=== PATIENT | female | born 1975 | race Caucasian/White ===

== ENCOUNTER 2021-01-03 21:59 | Inpatient (IN) | payer MEDICARE, OTHER ==
[~2021-01-03] VITALS: Ht 160 cm; Wt 59.1 kg
[2021-01-04] MEDS ORDERED: FAMOTIDINE20 MG PO (02:40)
[2021-01-04] MEDS ORDERED: GABAPENTIN800 MG PO (02:41)
[2021-01-04] MEDS ORDERED: BUPRENORPHIN-N1 EACH SL (02:43)
[2021-01-04 05:35] LABS: HEMOGLOBIN 13.2 gm/dl (12.3-15.3); RED BLOOD COUNT 4.04 M/UL (4.00-5.10); WHITE BLOOD COUNT 6.3 K/UL (4.5-11.0)
[2021-01-04 06:18] LABS: BUN/CREATININE RATIO 10 (0-10)
[2021-01-05 03:08] LABS: HEMOGLOBIN 11.9 gm/dl (12.3-15.3); RED BLOOD COUNT 3.85 M/UL (4.00-5.10); WHITE BLOOD COUNT 7.7 K/UL (4.5-11.0)
[2021-01-05 03:39] LABS: BUN/CREATININE RATIO 11 (0-10)
[2021-01-05 10:21] LABS: HBSAG SCREEN Negative (Negative); HEP A AB, IGM Negative (Negative); HEP B CORE AB, IGM Negative (Negative); HEP C VIRUS AB <0.1 (0.0-0.9)
[2021-01-06 05:26] LABS: HEMOGLOBIN 11.4 gm/dl (12.3-15.3); RED BLOOD COUNT 3.65 M/UL (4.00-5.10); WHITE BLOOD COUNT 6.7 K/UL (4.5-11.0)
[2021-01-06 08:15] LABS: BUN/CREATININE RATIO 10 (0-10)
[2021-01-07 04:48] LABS: HEMOGLOBIN 12.5 gm/dl (12.3-15.3); RED BLOOD COUNT 3.86 M/UL (4.00-5.10); WHITE BLOOD COUNT 7.5 K/UL (4.5-11.0)
[2021-01-08 06:09] LABS: HEMOGLOBIN 13.5 gm/dl (12.3-15.3); RED BLOOD COUNT 4.2 M/UL (4.00-5.10); WHITE BLOOD COUNT 7.8 K/UL (4.5-11.0)
[2021-01-08 06:28] LABS: BUN/CREATININE RATIO 13 (0-10)
[2021-01-09 03:23] LABS: HEMOGLOBIN 13.3 gm/dl (12.3-15.3); RED BLOOD COUNT 4.18 M/UL (4.00-5.10); WHITE BLOOD COUNT 7.6 K/UL (4.5-11.0)
[2021-01-10 04:13] LABS: HEMOGLOBIN 13.8 gm/dl (12.3-15.3); RED BLOOD COUNT 4.26 M/UL (4.00-5.10)
--- NOTE | 2021-01-10 17:49 | NUR ---
DRESSING CHANGED PER ORDERS AT 1100.
[2021-01-12 03:18] LABS: HEMOGLOBIN 13.5 gm/dl (12.3-15.3); RED BLOOD COUNT 4.14 M/UL (4.00-5.10); WHITE BLOOD COUNT 7.3 K/UL (4.5-11.0)
[2021-01-12] MEDS ORDERED: NICOTINE PATCH1 EAC2 TOP (09:43)
[2021-01-12] MEDS ORDERED: LEVOFLOXACIN500 MG PO (09:43)
== END 2021-01-12 11:45 | disposition home or self-care (01) | DRG 264 ==
LOC: M/S 21:59
PROVIDERS: Internal Medicine; Internal Medicine Infectious Disease; Physician Assistant; Podiatrist Foot & Ankle Surgery; ADMIT Internal Medicine
PROC: 0J9Q0ZZ Drainage of Right Foot Subcutaneous Tissue and Fascia, Open Approach (ICD-10-PCS; 2021-01-04)
PROC: 0JBQ0ZZ Excision of Right Foot Subcutaneous Tissue and Fascia, Open Approach (ICD-10-PCS; principal; 2021-01-04 09:45)
DX: E11.52 Type 2 diabetes mellitus with diabetic peripheral angiopathy with gangrene (principal); L03.115 Cellulitis of right lower limb; M86.8X7 Other osteomyelitis, ankle and foot; L02.415 Cutaneous abscess of right lower limb; F11.20 Opioid dependence, uncomplicated; N17.9 Acute kidney failure, unspecified; Z20.822 Contact with and (suspected) exposure to COVID-19; E11.69 Type 2 diabetes mellitus with other specified complication; I82.401 Acute embolism and thrombosis of unspecified deep veins of right lower extremity; F19.10 Other psychoactive substance abuse, uncomplicated; B95.4 Other streptococcus as the cause of diseases classified elsewhere; F17.210 Nicotine dependence, cigarettes, uncomplicated; E55.9 Vitamin D deficiency, unspecified; F41.9 Anxiety disorder, unspecified; Z79.4 Long term (current) use of insulin; Z90.710 Acquired absence of both cervix and uterus; Z83.3 Family history of diabetes mellitus
CPT/HCPCS: 36415; 80048; 80053; 80074; 80202; 85025; 86140; 87040; 87070; 87077; 87186; 87205; 93971; J1100; J1650; J1885; J1940; J1956; J2001; J2250; J2270; J2370; J2405; J2543; J2704; J2795; J3010; J3370; J7030; J7040; J7070; J7120; U0002